=== PATIENT | female | born 1985 | race Caucasian/White ===

== ENCOUNTER 2024-03-04 09:17 | Emergency (ER) | payer OTHER, SELFPAY ==
[2024-03-04 09:53] VITALS: BP 132/95; PULSE 109; RESP 18; TEMP 37.2; O2SAT 100
[2024-03-04 10:07] LABS: EDSTREPNEGPOS1 Positive (Negative)
--- NOTE | 2024-03-04 10:15 | ED.URI ---
HPI - URI/Sore Throat General Chief Complaint: Upper Respiratory Infection Stated Complaint: Sore Throat/Fever Time Seen by Provider: 03/04/24 10:00 Source: patient Mode of arrival: ambulatory Limitations: no limitations History of Present Illness HPI Narrative: 38-year-old female presents with complaint of sore throat, fatigue for 2-3 days. Afebrile. Denies nausea vomiting. Reports symptoms started with congestion, sinus pressure which has resolved and now sore throat pain getting worse. All systems reviewed and negative except as noted above. Related Data Allergies Allergy/AdvReac Type Severity Reaction Status Date / Time No Known Allergies Allergy Verified 03/04/24 09:47 Review of Systems Review of Systems: CONSTITUTIONAL: Denies fever, chills, or sweats. Reports fatigue. EYES: Denies visual changes, redness, or discharge. ENT: Denies rhinorrhea, congestion. Reports sore throat. Denies otalgia. CARDIOVASCULAR: Denies chest pain, palpitations, or edema. RESPIRATORY: Denies cough or dyspnea. GASTROINTESTINAL: Denies abdominal pain, nausea, vomiting, or diarrhea. GENITOURINARY: Denies dysuria or hematuria. SKIN: Denies rash or itching. MUSCULOSKELETAL: Denies back pain, joint pain, or myalgia. NEUROLOGIC: Denies headache, numbness, or weakness. PSYCHIATRIC: Denies anxiety or depression. All other systems reviewed are negative, except as documented in HPI. PMFSH Comments At time of signature, agree with nursing past medical, surgical, social and family history. There is no relevant family history pertinent to the presenting complaint. Exam Narrative: GENERAL: This is a well-nourished, well-developed patient, in no apparent distress. HEAD: normocephalic, atraumatic. EYES: PERRL. Sclera clear/white. Vision is grossly intact. EARS: External ears normal, auditory canals clear and without drainage, TMs normal without perforation. Hearing grossly intact. NOSE: External nose normal with no obvious nasal discharge, nares without redness, no rhinorrhea. THROAT: Mucous membranes moist, erythematous with mild swelling. Tonsils 1+ bilaterally with exudates. NECK: Neck supple, non-tender without lymphadenopathy, masses or thyromegaly. CARDIOVASCULAR: Regular rate and rhythm without murmurs, gallops, or rubs. RESPIRATORY: Clear to auscultation. Breath sounds equal bilaterally. No wheezes, rales, or rhonchi. SKIN: warm, Dry, intact with no suspicious lesions or rash, good texture and turgor. NEURO: awake, alert, and oriented to person, place and time. There were no obvious focal neurologic abnormalities. EXTREMITIES: No joint tenderness, effusion, or edema noted. Course Course Level of Care: Express Care Visit Vital Signs Vital signs: Vital Signs Temperature 37.2 C 03/04/24 09:53 Pulse Rate 109 H 03/04/24 09:53 Respiratory Rate 18 03/04/24 09:53 Blood Pressure 132/95 H 03/04/24 09:53 Pulse Oximetry 100 03/04/24 09:53 Oxygen Delivery Room Air 03/04/24 09:53 Temperature 37.2 C 03/04/24 09:53 Pulse Rate 109 H 03/04/24 09:53 Respiratory Rate 18 03/04/24 09:53 Blood Pressure 132/95 H 03/04/24 09:53 Pulse Oximetry 100 03/04/24 09:53 Oxygen Delivery Room Air 03/04/24 09:53 Reviewed MDM - URI/Sore Throat MDM Narrative Medical decision making narrative: Positive rapid strep. Will treat patient with amoxicillin. Patient is aware of diagnosis, understands and agrees to treatment plan. Anticipatory guidance given. Patient agrees to follow-up as directed and is aware of reasons to seek care at the emergency department. Portions of this record may have been created with voice recognition software Differential Diagnosis Differential diagnosis: Likely pharyngitis Lab Data Labs: Lab Results 03/04/24 Range/Units 09:54 POC Grp A Strep Screen Positive (Negative) Discharge Plan Discharge Clinical Impression: Strep throat Patient Disposition: Home,
== END 2024-03-04 10:55 | disposition home or self-care (01) ==
PROVIDERS: Emergency Provider Nurse Practitioner Family
DX: J02.0 Streptococcal pharyngitis (principal)
CPT/HCPCS: 87880; 99203; G0463